=== PATIENT | male | born 1955 ===

== ENCOUNTER → 2018-02-13 21:05 | Outpatient (REF) | payer OTHER, SELFPAY ==
[2018-02-13 22:17] LABS: Alanine Aminotransferase 73 IU/L (21-72); Albumin 4.7 g/dL (3.5-5.0); Albumin Globulin Ratio 1.6 (1.0-2.8); Alkaline Phosphatase 69 U/L (38-126); Aspartate Aminotransferase 52 IU/L (17-59); BUN Creatinine Ratio 18.2 (6-22); Bilirubin Total 0.7 mg/dL (0.2-1.3); Blood Urea Nitrogen 20 mg/dL (9-20); Calcium 10.1 mg/dL (8.4-10.2); Carbon Dioxide 29 mmol/L (22-32); Chloride 102 mmol/L (98-107); Estimated Glomerular Filt Rate > 60.0 mL/min (>60); Glucose 88 mg/dL (80-110); HEMOLYSIS < 15 (0-50); Potassium 4.8 mmol/L (3.4-5.1); Sodium 142 mmol/L (137-145); Total Protein 7.7 g/dL (6.3-8.2)
[2018-02-17 14:25] LABS: PSA Total 7.67 ng/mL (< 4.01); Reflex Free PSA 1.7 ng/mL
== END ==
LOC: LAB 21:05
PROVIDERS: Visit Provider Naturopath
DX: E29.1 Testicular hypofunction (principal); I10 Essential (primary) hypertension; R97.20 Elevated prostate specific antigen [PSA]
CPT/HCPCS: 36415; 80053; 84153; 84154